=== PATIENT | male | born 1975 | race African-American/Black ===

== ENCOUNTER 2024-04-16 20:52 | Emergency (ER) | payer MEDICAID, OTHER ==
[~2024-04-16] VITALS: Ht 182.9 cm; Wt 79.5 kg
[2024-04-16] MEDS: SODIUM CHLORIDE 0.9% 1,000 ML IV ONE (21:15)
[2024-04-16 21:26] LABS: Basophils # (auto) 0 10 ^3/uL (0-0.2); Basophils % (auto) 0.4 % (0.0-2.0); Eosinophils # (auto) 0 10 ^3/uL (0-0.8); Eosinophils % (auto) 0.2 % (0.0-7.0); Hematocrit 40.5 % (41.0-53.0); Hemoglobin 13.6 g/dL (13.5-17.5); Lymphocytes # (auto) 1.3 10 ^3/uL (0.4-5.4); Lymphocytes % (auto) 19.1 % (10.0-50.0); Mean Corpuscular Hgb Conc. 33.6 g/dL (32.0-36.0); Mean Corpuscular Volume 80.2 fL (80.0-100.0); Monocytes # (auto) 0.5 10 ^3/uL (0-1.3); Neutrophils # (auto) 4.9 10 ^3/uL (1.6-8.6); Neutrophils % (auto) 73.3 % (37.0-80.0); Platelet Count (auto) 306 10^3/uL (140-450); Red Blood Cells 5.05 10^6/uL (4.5-5.90); White Blood Cell 6.7 10^3/uL (4.4-10.8)
[2024-04-16 21:42] LABS: Alanine Aminotransferase 11 U/L (7-40); Albumin 4.7 g/dL (3.2-4.8); Alkaline Phosphatase 141 U/L (46-116); Anion Gap 9 (5-15); Aspartate Aminotransferase 13 U/L (13-40); BUN/Creatinine Ratio 7.1 (10.0-20.0); Bilirubin, Total 0.8 mg/dL (0.2-1.0); Blood Urea Nitrogen 10 mg/dL (9-23); Calcium 10.2 mg/dL (8.7-10.4); Carbon Dioxide 23 mmol/L (20-31); Chloride 105 mmol/L (98-107); Glucose 92 mg/dL (74-106); Lipase 32 U/L (12-53); Potassium 3.7 mmol/L (3.5-5.1); Sodium 137 mmol/L (136-145); Total Protein 7.8 g/dL (5.7-8.2)
[2024-04-16 22:10] VITALS: PULSE 84; RESP 16; O2SAT 96
[2024-04-16] MEDS: ONDANSETRON HCL 4 MG/2 ML VIAL IV ONE (22:20)
[2024-04-16 23:09] LABS: Urine Bacteria None Seen /hpf (None Seen)
[2024-04-16 23:22] LABS: Urine Blood 1+ /uL (Negative); Urine Clarity Clear (Clear); Urine Color Light-Yellow (Yellow); Urine Protein, UAD TRACE (Negative); Urine Specific Gravity 1.009 (1.001-1.035); Urine Urobilinogen Normal (Negative); Urine WBC 1 /hpf (0 - 3)
[2024-04-17 01:10] VITALS: BP 133/81; PULSE 82; RESP 16; TEMP 98.4; O2SAT 100
== END 2024-04-17 03:05 | disposition home or self-care (01) ==
LOC: ER 20:52
DX: R10.84 Generalized abdominal pain (principal); R11.2 Nausea with vomiting, unspecified; J45.909 Unspecified asthma, uncomplicated; E78.5 Hyperlipidemia, unspecified
CPT/HCPCS: 36415; 74176; 80053; 81001; 83605; 83690; 84484; 85025; 96361; 96374; 99285; J2405; J7030